=== PATIENT | male | born 1985 | race African-American/Black ===

== ENCOUNTER 2018-09-26 13:29 | Emergency (ER) | payer OTHER ==
[~2018-09-26] VITALS: Ht 182.9 cm; Wt 87.0 kg
[2018-09-26] MEDS ORDERED: ACETAMINOPHEN WITH CODEINE 300/30MG TABLET PO ONE (14:00)
[2018-09-26] MEDS ORDERED: LIDOCAINE HCL/PF 1% 10 MG/ML 5ML VIAL IJ ONE (14:00)
[2018-09-26] MEDS ORDERED: KETOROLAC 30MG/ML VIAL IV ONE (14:00)
[2018-09-26] MEDS ORDERED: BACITRACIN ZINC OINT UDPKT TOP ONE (14:00)
[2018-09-26 16:01] VITALS: BP 130/80
== END 2018-09-26 16:02 | disposition home or self-care (01) ==
LOC: ER 13:29
DX: S61.411A Laceration without foreign body of right hand, initial encounter (principal); T24.112A Burn of first degree of left thigh, initial encounter; V43.52XA Car driver injured in collision with other type car in traffic accident, initial encounter; W22.11XA Striking against or struck by driver side automobile airbag, initial encounter; Y93.89 Activity, other specified; Y92.488 Other paved roadways as the place of occurrence of the external cause
CPT/HCPCS: 12002; 16020; 96374; 99284; J1885; J3490